=== PATIENT | male | born 1975 | race Caucasian/White ===

== ENCOUNTER 2020-08-24 17:32 | Inpatient (IN) | payer BC ==
[2020-08-24 18:28] LABS: Hemoglobin 13.2 g/dL (14.0-18.0); Mean Corpuscular HGB CONC 32.3 g/dL (32.0-36.0); Mean Corpuscular Hemoglobin 26.9 pg (27.0-31.0); Mean Corpuscular Volume 83.1 fL (78.0-98.0); Mean Platelet Volume 7.6 fL (7.4-10.4); Platelet Count 463 thou/uL (130-400); RBC Distribution Width 13.7 % (11.5-14.5); White Blood Cell (WBC) Count 9.6 thou/uL (4.8-10.8)
[2020-08-24 18:44] LABS: ALT (SGPT) 22 U/L (8-55); AST (SGOT) 39 U/L (5-34); Alkaline Phosphatase 59 U/L (40-110); Anion Gap 16 mmol/L (10-20); BUN (Urea Nitrogen) 31 mg/dL (8.9-20.6); Bilirubin, Total 0.6 mg/dL (0.2-1.2); Calc. Creatinine Clearance 0 mL/min (70-130); Calcium 7.7 mg/dL (7.8-10.44); Carbon Dioxide 26 mmol/L (22-29); Chloride 104 mmol/L (98-107); Estimated GFR-MDRD 35; Globulin 3.4 g/dL (2.4-3.5); Lipase 356 U/L (8-78); Potassium 3.7 mmol/L (3.5-5.1); Protein, Total 6.4 g/dL (6.0-8.3); Sodium 142 mmol/L (136-145)
[2020-08-24 18:52] LABS: Anisocytosis SLIGHT = 6-15 cells (100X) (0-5/hpf); Band 35 % (5-11); Eosinophils 1 % (0-10); MDiff Complete? YES; Monocytes 5 % (0-10); Neutrophil 56 % (42-75); Platelet Morphology Comment Appears Increased; Polychromasia SLIGHT = 2-3 cells (100X) (0-2/hpf); Reactive Lymphocytes 3 % (0-10)
[2020-08-24 18:53] LABS: Glucose 583 mg/dL (70-105)
[2020-08-24 19:07] LABS: Actual Bicarbonate (HCO3v) 25 mEq/L (22-28); Analyzer IN Cardio ER; Base Excess 1.1 mEq/L (-2.0 to +3.0); Calcium, Ionized (venous) 0.99 mmol/L (1.16-1.32); Chloride (VBG) 106 mmol/L (98-106); Potassium (VBG) 3.82 mmol/L (3.70-5.30); Sodium 141.6 mmol/L (133-146); pH (venous) 7.45 (7.32-7.43)
[2020-08-24 19:11] LABS: Bacteria/HPF None Seen HPF (None Seen); Bilirubin Negative (Negative); Blood, Urine 2+ (Negative); Clarity Clear (Clear); Glucose, Urine (Dipstick) Greater than 1000 mg/dL (Negative); Ketone, Urine Negative (Negative); Leukocyte Negative Leu/uL (Negative); Nitrite Negative (Negative); Protein, Urine (Dipstick) 10 mg/dL (Neg-Trace); RBC/HPF 0-3 HPF (0-3); Specific Gravity, Urine 1.036 (1.002-1.036); Squamous Epithelial 0-3 HPF (0-3); Urobilinogen Normal mg/dL (Less than 2); pH, Urine 5.5 (5.0-9.0)
[2020-08-24] MEDS ORDERED: HUMULIN R 100 UNITS in Sodium Chloride 0.9% 100 ML IVPB SCH ×2 (19:15→21:15)
[2020-08-24] MEDS ORDERED: Dextrose 5% in Water 1,000 ML IV PRN (19:15)
[2020-08-24] MEDS ORDERED: ADD ELECTROLYTE REPLACEMENT SET TO PROFILE FS SCH (19:15)
[2020-08-24] MEDS ORDERED: D5 1/2 NS w/20 mEq KCL 1,000 ML IV PRN (19:15)
[2020-08-24] MEDS ORDERED: Insulin Regular 300 UNITS/3 ML VIAL IVP SCH (19:15)
[2020-08-24] MEDS ORDERED: NS 0.9% w/ 20 MEQ KCL 1,000 ML/1,000 ML BAG IV PRN ×2 (19:15)
[2020-08-24] MEDS ORDERED: Dextrose 5 %-0.45 % NaCl 1,000 ML IV PRN ×2 (19:15→21:07)
[2020-08-24] MEDS ORDERED: Dextrose 50% Abboject 50 ML SYRINGE SLOW IVP PRN (19:15)
[2020-08-24] MEDS ORDERED: Electrolyte Replacement Protocol FS PRN (19:15)
[2020-08-24] MEDS ORDERED: Sodium Chloride 0.9% 1,000 ML IV PRN ×8 (19:15→21:07)
[2020-08-24] MEDS ORDERED: INSULIN REGULAR IN 0.9 % NACL 100 UNIT/100 ML BAG ONE (19:50)
[2020-08-24] MEDS ORDERED: NS 0.9% w/ 20 MEQ KCL 1,000 ML IV SCH (21:00)
[2020-08-24] MEDS ORDERED: HYDROcodone/Acetaminophen 5/325 mg Tablet PO PRN (21:07)
[2020-08-24] MEDS ORDERED: Acetaminophen 325 MG TAB PO PRN (21:07)
[2020-08-24] MEDS ORDERED: Guaifenesin DM 100-10/5 ML UDCUP PO PRN (21:07)
[2020-08-24] MEDS ORDERED: Electrolyte Replacement Protoc 1 EACH EACH IVPB PRN (21:07)
[2020-08-24] MEDS ORDERED: Acetaminophen 650 MG Suppository PR PRN (21:07)
[2020-08-24] MEDS ORDERED: NS 0.9% w/ 20 MEQ KCL 1,000 ML IV PRN ×2 (21:07)
--- NOTE | 2020-08-24 21:17 | PDOC.HHP ---
Hospitalist HPI - History of Present Illness cough sob History of Present Illness: Case of an 44y/o male with apparent no pmhx of chronic conditons who comes to hospital transfered fro [facility] due to covid 19 pneumonia. apparently patient was diagnosed on 08/12/20 with covid 19 and since then has been getting progressively worse. patient refers fever chills cough dyspnea and general malaise. at ED patient was evaluated and found to be on severe sepsis, in hyperosmolar hyperglycemic state and in acute respiratory failure requiring high flow oxygen, for which hospitalist was called for further evaluation and management. Hospitalist ROS - Review of Systems All other systems reviewed; all pertinent +/- noted in HPI/Subj Hospitalist History - Past Surgical History Past Surgical History: reports: no pertinent history - Social History Smoking Status: Never smoker Alcohol: reports: None Drugs: reports: none Living Situation: With Family Hospitalist Results - Labs Result Diagrams: 08/24/20 18:14 08/24/20 18:14 Lab results: WBC 9.6 thou/uL (4.8-10.8) 08/24/20 18:14 Hgb 13.2 g/dL (14.0-18.0) L 08/24/20 18:14 Hct 40.7 % (42.0-52.0) L 08/24/20 18:14 MCV 83.1 fL (78.0-98.0) 08/24/20 18:14 Plt Count 463 thou/uL (130-400) H 08/24/20 18:14 Band Neuts % (Manual) 35 % (5-11) H 08/24/20 18:14 VBG pH 7.45 (7.32-7.43) H 08/24/20 18:58 VBG pCO2 36.4 mmHg (42.0-51.0) L 08/24/20 18:58 VBG pO2 135.3 mmHg (35.0-45.0) H 08/24/20 18:58 Sodium 142 mmol/L (136-145) 08/24/20 18:14 Potassium 3.7 mmol/L (3.5-5.1) 08/24/20 18:14 Chloride 104 mmol/L (98-107) 08/24/20 18:14 Carbon Dioxide 26 mmol/L (22-29) 08/24/20 18:14 BUN 31 mg/dL (8.9-20.6) H 08/24/20 18:14 Creatinine 2.05 mg/dL (0.7-1.3) H 08/24/20 18:14 Glucose 583 mg/dL (70-105) H* 08/24/20 18:14 Lactic Acid 2.0 mmol/L (0.5-2.2) 08/24/20 18:14 Calcium 7.7 mg/dL (7.8-10.44) L 08/24/20 18:14 Total Bilirubin 0.6 mg/dL (0.2-1.2) 08/24/20 18:14 AST 39 U/L (5-34) H 08/24/20 18:14 ALT 22 U/L (8-55) 08/24/20 18:14 Alkaline Phosphatase 59 U/L (40-110) 08/24/20 18:14 Troponin I 0.019 ng/mL (< 0.028) 08/24/20 18:14 B-Natriuretic Peptide 14.1 pg/mL (0-100) 08/24/20 18:14 Serum Total Protein 6.4 g/dL (6.0-8.3) 08/24/20 18:14 Albumin 3.0 g/dL (3.5-5.0) L 08/24/20 18:14 Lipase 356 U/L (8-78) H 08/24/20 18:14 Urine Ketones Negative mg/dL (Negative) 08/24/20 18:40 Urine Blood 2+ (Negative) A 08/24/20 18:40 Urine Nitrite Negative (Negative) 08/24/20 18:40 Ur Leukocyte Esterase Negative Mauri/uL (Negative) 08/24/20 18:40 Urine RBC 0-3 HPF (0-3) 08/24/20 18:40 Urine WBC 4-6 HPF (0-3) A 08/24/20 18:40 Ur Squamous Epith Cells 0-3 HPF (0-3) 08/24/20 18:40 Urine Bacteria None Seen HPF (None Seen) 08/24/20 18:40 Hospitalist H&P A/P - Problem (1) Acute respiratory failure due to COVID-19 Code(s): U07.1 - COVID-19; J96.00 - ACUTE RESPIRATORY FAILURE, UNSP W HYPOXIA OR HYPERCAPNIA Status: Acute (2) Pneumonia due to COVID-19 virus Code(s): U07.1 - COVID-19; J12.89 - OTHER VIRAL PNEUMONIA Status: Acute (3) Hyperosmolar hyperglycemic state (HHS) Code(s): E11.00 - TYPE 2 DIAB W HYPROSM W/O NONKET HYPRGLY-HYPROS COMA ([facility]); E11.65 - TYPE 2 DIABETES MELLITUS WITH HYPERGLYCEMIA Status: Acute (4) Sepsis Code(s): A41.9 - SEPSIS, UNSPECIFIED ORGANISM Status: Acute (5) Renal failure Status: Acute (6) Elevated d-dimer Code(s): R79.89 - OTHER SPECIFIED ABNORMAL FINDINGS OF BLOOD CHEMISTRY Status: Acute - Plan Plan: Case of an 44y/o male with no apparent pmhx who presents with severe sepsis likely secondary to covid 19 pneumonia, hypersomolar hyperglycemic state and renal failure severe sepsis likely secondary to covid 19 pneumonia - tachycardic + tachypnic + respiratory failure + renal failure + elevated LA at 3.8 with a cxr suspicious for covid 19 pneumonia - sepsis bundles started w ivfs cultures and broad spectrum abx - started prophylactically on rocephin + azithromycin - f/u LA initial 3.8 - f/u cultures - decadron 6mg ivd - f/u inflammation markers - id consulted acute respiratory failure - requiring high flow 02 supplementation - likely secondary to above - corporate meeting planner consulted hyperosmolar hyperglycemic state - blood sugar over 600s, calculated osmolality 339, normal anion gap, normal ph, positive ketones in urine - insulin drip protocol started - iv hydration renal failure - iv hydration - monitor creatinine and u/o - likely multifactorial in the setting of severe sepsis and HHS - nephrology cosulted - renal us elevated dimer - patient with elevated dimer - unable to get cta due to renal failure - will cover with full dose of lovenox
--- NOTE | 2020-08-24 21:58 | RAD ---
Portable frontal chest radiograph: 08/24/2020 COMPARISON: 08/24/2020 HISTORY: Sepsis FINDINGS: There has been no significant interval change in diffuse interstitial and alveolar/ground g lass opacity bilaterally. No pneumothorax or large volume pleural effusion. Heart and mediastinal contours are unremarkable. IMPRESSION: Stable extensive interstitial and alveolar opacity suspicious for Covid pneumonia.
[2020-08-24 22:00] LABS: Anion Gap 18 mmol/L (10-20); BUN (Urea Nitrogen) 30 mg/dL (8.9-20.6); Calc. Creatinine Clearance 95 mL/min (70-130); Calcium 7.7 mg/dL (7.8-10.44); Carbon Dioxide 23 mmol/L (22-29); Chloride 108 mmol/L (98-107); Estimated GFR-MDRD 39; Glucose 491 mg/dL (70-105); Potassium 3.7 mmol/L (3.5-5.1); Sodium 145 mmol/L (136-145)
[2020-08-24] MEDS ORDERED: Azithromycin 500 MG in Sodium Chloride 0.9% 250 ML 250 ML IVPB SCH (22:00)
[2020-08-24] MEDS: cefTRIAXone\\ROCEPHIN 2 GM in Sodium Chloride 0.9% 100 ML IVPB SCH (23:12)
[2020-08-25] MEDS: Azithromycin 500 MG in Sodium Chloride 0.9% 250 ML 250 ML IVPB SCH ×2 (00:20→23:14)
[2020-08-25 01:28] VITALS: BMI 40.6
[2020-08-25 02:49] LABS: Band 20 % (5-11); Hemoglobin 12.6 g/dL (14.0-18.0); Lymphocytes 5 % (21-51); MDiff Complete? YES; Mean Corpuscular HGB CONC 33.7 g/dL (32.0-36.0); Mean Corpuscular Volume 83.2 fL (78.0-98.0); Mean Platelet Volume 7.5 fL (7.4-10.4); Monocytes 3 % (0-10); Neutrophil 71 % (42-75); Nucleated RBC 1 % (0); Platelet Count 447 thou/uL (130-400); RBC Distribution Width 13.6 % (11.5-14.5); Red Blood Cell (RBC) Count 4.51 mill/uL (4.70-6.10)
[2020-08-25] MEDS: D5 1/2 NS w/20 mEq KCL 1,000 ML IV PRN ×3 (02:57→22:23)
[2020-08-25 03:08] LABS: ALT (SGPT) 20 U/L (8-55); AST (SGOT) 39 U/L (5-34); Albumin 2.9 g/dL (3.5-5.0); Alkaline Phosphatase 53 U/L (40-110); Anion Gap 13 mmol/L (10-20); BUN (Urea Nitrogen) 25 mg/dL (8.9-20.6); Bilirubin, Total 0.5 mg/dL (0.2-1.2); CRP (Inflammatory) 15.63 mg/dL (= or < 0.5); Calc. Creatinine Clearance 114 mL/min (70-130); Calcium 7.5 mg/dL (7.8-10.44); Carbon Dioxide 26 mmol/L (22-29); Chloride 113 mmol/L (98-107); Estimated GFR-MDRD 48; Globulin 3.4 g/dL (2.4-3.5); Glucose 241 mg/dL (70-105); Potassium 3.8 mmol/L (3.5-5.1); Protein, Total 6.3 g/dL (6.0-8.3); Sodium 148 mmol/L (136-145)
[2020-08-25 05:28] LABS: Anion Gap 16 mmol/L (10-20); BUN (Urea Nitrogen) 24 mg/dL (8.9-20.6); Calc. Creatinine Clearance 121 mL/min (70-130); Calcium 7.4 mg/dL (7.8-10.44); Carbon Dioxide 23 mmol/L (22-29); Chloride 114 mmol/L (98-107); Estimated GFR-MDRD 51; Glucose 182 mg/dL (70-105); Potassium 3.9 mmol/L (3.5-5.1); Sodium 149 mmol/L (136-145)
--- NOTE | 2020-08-25 07:55 | ULT ---
US Renal Bilateral STANDARD: 08/25/2020 7:00 AM CLINICAL HISTORY: Renal failure. STUDY: Renal ultrasound COMPARISON: None. FINDINGS: Right kidney: Echogenicity: Slight increased echogenicity Masses/cysts: None. Hydronephrosis: None. Calcifications: None. Length: 13.5 cm Left kidney: Echogenicity: Slight increased echogenicity Masses/cysts: None. Hydronephrosis: None. Calcifications: None. Length: 11.5 cm Limited visualization of the urinary bladder is unremarkable. IMPRESSION: Slight increased echogenicity of the kidneys can be seen with chronic medical renal disease.
--- NOTE | 2020-08-25 08:39 | PDOC.HOSPP ---
- Subjective Encounter Date: 08/25/20 Encounter Time: 08:36 Subjective: denies DM, wont keep O2 on. sats drop to 80 - Objective Vital Signs & Weight: Vital Signs (12 hours) Temp Pulse Ox 08/25/20 07:20 95 08/24/20 21:08 97.3 F L 08/24/20 21:00 96 Weight Weight 300 lb 1 oz Most Recent Monitor Data Heart Rate from ECG 90 NIBP 145/96 NIBP BP-Mean 112 Respiration from ECG 27 SpO2 93 I&O: 08/24/20 08/25/20 08/26/20 06:59 06:59 06:59 Intake Total 2810 260 Output Total 450 Balance 2360 260 Result Diagrams: 08/25/20 02:15 08/25/20 04:38 Additional Labs: Accuchecks 08/25/20 08/25/20 08/25/20 08:21 07:08 06:46 POC Glucose 136 H 197 H 146 H 08/25/20 08/25/20 08/25/20 06:11 05:51 04:56 POC Glucose 167 H 151 H 175 H 08/25/20 08/25/20 08/25/20 04:11 03:00 02:14 POC Glucose 184 H 196 H 228 H 08/25/20 08/24/20 08/24/20 00:26 23:17 21:12 POC Glucose 299 H 355 H 440 H 08/24/20 19:57 POC Glucose 459 H Hospitalist ROS - Medication Medications: Active Medications Generic Name Dose Route Start Last Admin Trade Name Freq PRN Reason Stop Dose Admin Potassium Chloride/Dextrose/Sod Cl 1,000 mls @ 250 mls/hr 08/24/20 21:07 08/25/20 06:27 D5 1/2 Ns W/20 Meq Kcl IV 1,000 mls .Q4H PRN Administration Step 4 of DKA Protocol Protocol Potassium Chloride/Sodium Chloride 1,000 mls @ 250 mls/hr 08/24/20 21:07 08/24/20 23:18 Ns 0.9% W/ 20 Meq Kcl IV 1,000 mls .Q4H PRN Administration SEE STEP 3 OF DKA PROTOCOL Protocol Insulin Human Regular 100 101 mls @ 0 mls/hr 08/24/20 21:15 08/25/20 05:47 units/ Sodium Chloride IVPB 101 mls INF LAVERN Administration Protocol Titrate Ceftriaxone Sodium 2 gm/ 100 mls @ 200 mls/hr 08/24/20 21:15 08/24/20 23:12 Sodium Chloride IVPB 100 mls Q24HR LAVERN Administration Azithromycin 500 mg/ Sodium 250 mls @ 250 mls/hr 08/24/20 23:59 08/25/20 00:20 Chloride IVPB 250 mls 2359 LAVERN Administration Influenza Virus Vaccine Quadrival 60 mcg 08/25/20 09:00 08/25/20 07:52 Flu Vacc [id number](6mos Up)/Pf 60 Mcg/0.5 Ml Syringe IM 08/25/20 09:01 Not Given .ONCE ONE Pneumococcal Polyvalent Vaccine 0.5 ml 08/25/20 09:00 08/25/20 07:52 Pneumococcal 23 "Pneumovax" 0.5 Ml Vial IM 08/25/20 09:01 Not Given .ONCE ONE - Exam General Appearance: awake alert Neck: no JVD Heart: RRR, no murmur Respiratory - other findings: bilat rales Gastrointestinal: soft, non-distended, normal bowel sounds Extremities: no edema Hosp A/P (1) Acute renal failure Status: Acute (2) DM2 (diabetes mellitus, type 2) Status: Acute Qualifiers: Diabetes mellitus custodial insulin use: without acid supervisor use Diabetes mellitus complication status: with kidney complications Diabetes mellitus complication detail: with other kidney complication Qualified Code(s): E11.29 - Type 2 diabetes mellitus with other diabetic kidney complication (3) Acute respiratory failure due to COVID-19 Code(s): U07.1 - COVID-19; J96.00 - ACUTE RESPIRATORY FAILURE, UNSP W HYPOXIA OR HYPERCAPNIA Status: Acute (4) Pneumonia due to COVID-19 virus Code(s): U07.1 - COVID-19; J12.89 - OTHER VIRAL PNEUMONIA Status: Acute - Plan contt high flow O2 cont steroids covid apparently Dx 08/12/20 cont iv fluids, iv insulin serial BMP,etc HgA1c
[2020-08-25] MEDS ORDERED: FLU VACC QS2020-21(6MOS UP)/PF 60 MCG/0.5 ML SYRINGE IM ONE (09:00)
[2020-08-25] MEDS: Dexamethasone 6 MG in Sodium Chloride 0.9% 50 ML IVPB SCH (09:12)
[2020-08-25] MEDS: Famotidine/PF 20 mg/2ml Vial SLOW IVP SCH ×2 (09:12→20:52)
[2020-08-25] MEDS: Enoxaparin Sodium 80 MG/0.8 ML SYRINGE SC SCH ×2 (09:13→20:50)
[2020-08-25 10:11] LABS: Hemoglobin A1c 11.2 % (4.0-6.0)
--- NOTE | 2020-08-25 10:42 | CON ---
DATE OF CONSULTATION: 08/25/2020 CONSULTING PHYSICIAN: Hospitalist. REASON FOR CONSULTATION: COVID-19 infection. HISTORY OF PRESENT ILLNESS: The patient is a 44-year-old male, who comes in saying he has been sick since 08/12 when he was first diagnosed with COVID-19 that would put him about day 13 at this time. He came in with hyperglycemia. It is not clear to me if he was taking steroids prior to admission. The patient says the only thing he remembers taking was Mucinex. PAST MEDICAL HISTORY: Essentially unremarkable. PAST SURGICAL HISTORY: Unremarkable. SOCIAL HISTORY: Does not smoke. Occasionally drinks alcohol. 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 REVIEW OF SYSTEMS: He still has a sense of taste and smell. No body aches. PHYSICAL EXAMINATION: VITAL SIGNS: Temperature 97.3, pulse 90, blood pressure 144/105. HEENT: Unremarkable. NECK: No JVD. LUNGS: Fairly clear. CARDIAC: S1 and S2, regular. ABDOMEN: Soft. EXTREMITIES: No edema. LABORATORY DATA: ABG; pH 7.45, pCO2 of 36, pO2 of 135. Sodium 149, potassium 3.9, chloride 114, CO2 of 23, BUN 24, creatinine 1.5, glucose 182, on insulin drip. C-reactive protein 15.6. D-dimer 0.9. White blood cell count 8, hematocrit 37.5, and platelet count 447. Urinalysis showed no ketones, he had a glucose of greater than 1000. Chest x-ray shows bilateral pulmonary infiltrates. ASSESSMENT: 1. COVID-19 infection consistent with pneumonia. 2. Diabetes with blood sugars out of control - question diabetic ketoacidosis based on elevated beta hydroxybutyrate, but no anion gap or acidosis seen on chemistry. RECOMMENDATIONS: He is continuing anticoagulation. He was put on empiric antibiotics by the Hospitalist Group. I would advocate changing him over to less hypertonic IV fluids. I would wean him off the insulin drip as tolerated. I am not sure steroids are going to be much help since he is day 14 into the illness and possibly even further. I have started him on vitamin C, vitamin D, and zinc. He will continue high-flow oxygen as needed. Job ID: [id number]
--- NOTE | 2020-08-25 17:19 | CON ---
DATE OF CONSULTATION: 08/25/2020 REASON FOR CONSULT: COVID pneumonia. HISTORY OF PRESENT ILLNESS: A 44-year-old with history of no previous medical issues, who was diagnosed with SARS-CoV-2 infection on August 12, initially mild symptoms, then they became progressively worse with dyspnea, cough, and general malaise. On arrival to the emergency room, he was hyperglycemic and with severe hypoxemia, was placed on a nonrebreathing Ventimask and eventually transition to high-flow nasal cannula. Currently, he is awake and alert with nasal cannula only 4 L. Denies headaches. No visual symptoms. Intermittent cough. No chest pain. Mild dyspnea. No back pain. No abdominal pain or diarrhea. No genitourinary symptoms. No joint symptoms. PAST MEDICAL HISTORY: It is all previously negative. Obviously, he had undiagnosed diabetes mellitus type 2. PAST SURGICAL HISTORY: Negative. SOCIAL HISTORY: Never smoker. He lives in [place]. He used to work there in [employer]. No alcoholic beverage use. No drug use. FAMILY HISTORY: Noncontributory. ALLERGIES: NONE. CURRENT MEDICATIONS: 1. Azithromycin. 2. Ceftriaxone. 3. Decadron. 4. Enoxaparin. 5. Guaifenesin. 6. Hydrocodone. 7. Zinc. PHYSICAL EXAMINATION: VITAL SIGNS: He has been afebrile. BP 113/86, heart rate 87, breathing 23 times a minute, and saturating 91 to 92 with 4 L nasal cannula O2 supplementation. SKIN: Exam was normal. Peripheral IV access. Voiding spontaneously in the urinal. No lymphadenopathy. HEENT: Ocular movements conjugate. Oral cavity normal. NECK: Supple. LUNGS: With quite pronounced inspiratory crackles up to a half of right and left hemithorax. No wheezing. HEART: S1 and S2. Regular rate. ABDOMEN: Soft, not distended or tender. No ascites. No bladder distention. EXTREMITIES: No joint inflammatory activity. Moves extremities equally. Cognitive function appears to be intact. LABORATORY DATA: White cell count is 8.0, hemoglobin 12.6, platelets 447, 20% bands, and D-dimer 0.9. Sodium 149, creatinine 1.48, AST 39, ALT 20, and calcium 7.5. CRP 15.63. Albumin 2.9. Urinalysis was 4 to 6 wbc's. Two sets of blood cultures, no growth and chest x-ray with diffuse bilateral infiltrates typical of COVID infection. Renal ultrasound with slight increased echogenicity. ASSESSMENT: 1. Undiagnosed type 2 diabetes. 2. COVID pneumonia, severe. DISCUSSION: The patient is at the end of his second week of illness, so he is not going to benefit from remdesivir and he is at high risk for deterioration, but we will hope that Decadron will turn around things for him. Continue monitoring markers and right now, he is on nasal cannula, kind of marginal success with nasal cannula. We will see how he does going forward. Job ID: [id number]
[2020-08-25] MEDS: cefTRIAXone\\ROCEPHIN 2 GM in Sodium Chloride 0.9% 100 ML IVPB SCH (20:52)
--- NOTE | 2020-08-25 22:14 | CON ---
DATE OF CONSULTATION: REQUESTING PHYSICIAN: Liam Ghotra MD REASON FOR CONSULTATION: Acute on chronic kidney disease. IMPRESSION: 1. Acute on chronic kidney disease. This is likely all cytokine-mediated in the context of infection as well as possible COVID nephropathy. 2. Chronic kidney disease. PLAN: 1. Renal supportive measures with gentle IV fluid resuscitation. 2. Avoid potentially nephrotoxic agents. 3. Renally dose all medications. 4. Further management will be dependent on the clinical course. HISTORY OF PRESENT ILLNESS: History is that of a 44-year-old gentleman, who presented here with cough and shortness of breath, having been transferred from [facility] due to possible COVID-19 pneumonitis. The patient after being diagnosed with COVID on the , has progressively been getting worse with fever, chills, cough, and respiratory distress. The patient on presentation, was noted with a creatinine above 2, it was the need for Renal consultation. PAST MEDICAL HISTORY: Nonsignificant at this point. SOCIAL HISTORY: No alcohol. No tobacco. No illicit drug use. LABORATORY INVESTIGATIONS: Significant for creatinine of 2.05 and BUN of 31. REVIEW OF SYSTEMS: Could not be obtained due to clinical condition of this. PHYSICAL EXAMINATION: VITAL SIGNS: The patient noted with the following vital signs, heart rate of 86 to 102, O2 saturation of 80% to 92%, and respiratory rate of 21. HEENT: Unremarkable. CARDIOVASCULAR SYSTEM: First and second heart sounds were heard. RESPIRATORY SYSTEM: Lateral rales. DIGESTIVE SYSTEM: Benign abdomen. EXTREMITIES: No peripheral edema. SKIN: No new gross rash. LYMPHATICS: No peripheral lymphadenopathy. SUMMARY: A 44-year-old, recently diagnosed COVID pneumonitis with renal involvement. Thank you for this consultation. We will follow with you. Job ID: [id number]
[2020-08-26] MEDS: D5 1/2 NS w/20 mEq KCL 1,000 ML IV PRN (02:37)
[2020-08-26 04:40] LABS: Anion Gap 14 mmol/L (10-20); BUN (Urea Nitrogen) 15 mg/dL (8.9-20.6); Calc. Creatinine Clearance 139 mL/min (70-130); Calcium 7.2 mg/dL (7.8-10.44); Carbon Dioxide 26 mmol/L (22-29); Chloride 112 mmol/L (98-107); Estimated GFR-MDRD 60; Glucose 189 mg/dL (70-105); Potassium 3.8 mmol/L (3.5-5.1); Sodium 148 mmol/L (136-145)
[2020-08-26] MEDS: Ascorbic Acid 500 mg Chewable Tablet PO SCH (08:08)
[2020-08-26] MEDS: Zinc Sulfate 220 MG CAP PO SCH (08:08)
[2020-08-26] MEDS: Famotidine/PF 20 mg/2ml Vial SLOW IVP SCH ×2 (08:08→20:15)
[2020-08-26] MEDS ORDERED: Dextrose 5% in Water 1,000 ML IV PRN (08:09)
[2020-08-26] MEDS: Cholecalciferol (Vitamin D3) 400 UNITS TAB PO SCH (08:09)
[2020-08-26] MEDS ORDERED: Dextrose 50% Abboject 50 ML SYRINGE SLOW IVP PRN (08:09)
[2020-08-26] MEDS: Enoxaparin Sodium 80 MG/0.8 ML SYRINGE SC SCH ×2 (08:11→20:17)
--- NOTE | 2020-08-26 08:12 | PDOC.HOSPP ---
- Subjective Encounter Date: 08/26/20 Encounter Time: 08:10 Subjective: pulls O2 off, desats to 70. nursing staff coping with his lack of cooperation - Objective Vital Signs & Weight: Vital Signs (12 hours) Temp 08/26/20 04:00 98.8 F 08/26/20 00:05 98.2 F 08/25/20 21:56 98.0 F Weight Weight 300 lb 1 oz Most Recent Monitor Data Heart Rate from ECG 100 NIBP 99/62 NIBP BP-Mean 74 Respiration from ECG 23 SpO2 96 I&O: 08/25/20 08/26/20 08/27/20 06:59 06:59 06:59 Intake Total 2810 6707 250 Output Total 450 2050 Balance 2360 4657 250 Result Diagrams: 08/25/20 02:15 08/26/20 03:56 Additional Labs: Accuchecks 08/26/20 08/26/20 08/26/20 07:22 05:52 05:04 POC Glucose 120 H 142 H 152 H 08/26/20 08/26/20 08/26/20 03:59 02:41 01:47 POC Glucose 171 H 208 H 191 H 08/26/20 08/25/20 08/25/20 00:54 23:58 23:08 POC Glucose 205 H 186 H 168 H 08/25/20 08/25/20 08/25/20 21:45 21:02 20:14 POC Glucose 125 H 138 H 126 H 08/25/20 08/25/20 08/25/20 19:22 17:10 16:03 POC Glucose 136 H 129 H 133 H 08/25/20 08/25/20 08/25/20 14:56 13:27 11:19 POC Glucose 162 H 116 H 120 H 08/25/20 08/25/20 08/25/20 10:16 09:22 08:21 POC Glucose 116 H 125 H 136 H 08/24/20 08/24/20 22:16 18:00 POC Glucose 390 H Greater than 500 H Hospitalist ROS - Medication Medications: Active Medications Generic Name Dose Route Start Last Admin Trade Name Freq PRN Reason Stop Dose Admin Enoxaparin Sodium 140 mg 08/25/20 09:00 08/25/20 20:50 Enoxaparin Sodium 80 Mg/0.8 Ml Syringe SC 140 mg 0900,2100 [facility] Administration Famotidine 20 mg 08/25/20 09:00 08/25/20 20:52 Famotidine/Pf 20 Mg/2ml Vial SLOW IVP 20 mg Q12HR LAVERN Administration Ceftriaxone Sodium 2 gm/ 100 mls @ 200 mls/hr 08/24/20 21:15 08/25/20 20:52 Sodium Chloride IVPB 100 mls Q24HR LAVERN Administration Dexamethasone 6 mg/ Sodium 50.6 mls @ 100 mls/hr 08/25/20 09:00 08/25/20 09:12 Chloride IVPB 50.6 mls DAILY LAVERN Administration Azithromycin 500 mg/ Sodium 250 mls @ 250 mls/hr 08/24/20 23:59 08/25/20 23:14 Chloride IVPB 250 mls 2359 LAVERN Administration - Exam General Appearance: awake alert Neck: no JVD Heart: RRR, no murmur Respiratory - other findings: fine rales most pronounced posteriorly. mildly coarse BS Gastrointestinal: soft, normal bowel sounds, no palpable masses Extremities: no edema Hosp A/P (1) Acute renal failure Status: Acute Qualifiers: Acute renal failure type: unspecified Qualified Code(s): N17.9 - Acute kidney failure, unspecified (2) DM2 (diabetes mellitus, type 2) Status: Acute Qualifiers: Diabetes mellitus petroleum terminal plant operator insulin use: without mcfp use Diabetes mellitus complication status: with kidney complications Diabetes mellitus complication detail: with other kidney complication Qualified Code(s): E11.29 - Type 2 diabetes mellitus with other diabetic kidney complication (3) Acute respiratory failure due to COVID-19 Code(s): U07.1 - COVID-19; J96.00 - ACUTE RESPIRATORY FAILURE, UNSP W HYPOXIA OR HYPERCAPNIA Status: Acute (4) Pneumonia due to COVID-19 virus Code(s): U07.1 - COVID-19; J12.89 - OTHER VIRAL PNEUMONIA Status: Acute - Plan appreciate Dr Ba input cont high flow O2 cont steroids covid apparently Dx 08/12/20 DC iv insulin 2400 kerri consistent carbs diet accu AC&HS, moderate SS start lantus 10 units HS renaal fcn improving
[2020-08-26] MEDS: Dexamethasone 6 MG in Sodium Chloride 0.9% 50 ML IVPB SCH (09:09)
--- NOTE | 2020-08-26 09:52 | PRG ---
DATE OF SERVICE: 08/26/2020 SUBJECTIVE: He remains somewhat confused. He is on high-flow oxygen. OBJECTIVE: VITAL SIGNS: Temperature 98.8, pulse 111, blood pressure 114/94, O2 saturation 92%. HEENT: Unremarkable. NECK: No JVD. LUNGS: Crackles bilaterally. CARDIAC: S1, S2. Regular. ABDOMEN: Soft. EXTREMITIES: No edema. LABORATORY DATA: Blood sugars are down to about 142. C-reactive protein was 7.29 as compared to 15.6 when he was admitted. ASSESSMENT: 1. COVID-19 pneumonia. 2. Acute hypoxic respiratory failure. 3. Diabetes mellitus. PLAN: He is continuing steroids, vitamin C, vitamin D, zinc. He is also on anticoagulation, secondary antibiotics. Job ID: [id number]
[2020-08-26] MEDS: HumaLOG 300 UNITS/3 ML VIAL SC PRN (11:49)
--- NOTE | 2020-08-26 17:26 | PRG ---
DATE OF SERVICE: 08/26/2020 SUBJECTIVE: Mr. Pittman is not tolerating his high-flow nasal cannula. We had to switch him to a nonrebreathing mask and he still keeps the nonrebreathing mask below his nose. Sometimes, he feels anxious. He denies any pain. He is able to drink and eat. No abdominal pain. No genitourinary symptoms. OBJECTIVE: VITAL SIGNS: Afebrile, saturation 92% with not nonrebreathing Ventimask and 91% on room air, BP 120/86, heart rate 97, respiratory rate 22. GENERAL: He appears somewhat agitated and anxious, but ocular movements are conjugate. LUNGS: Symmetric air entry. HEART: S1 and S2, regular rate. Not a lot of inspiratory crackles or wheezing heard. ABDOMEN: Soft, not distended or tender. No ascites. No bladder distention. EXTREMITIES: Moves extremities equally. LABORATORY DATA: White cell count 8.0, hemoglobin 12.6, platelets 447. Chemistry with a creatinine of 1.29, which is actually better than admission. Ferritin is down to 1900. CRP is down to 7.29. MEDICATIONS: Currently on, 1. Decadron. 2. Ceftriaxone. 3. Azithromycin. ASSESSMENT AND DISCUSSION: Undiagnosed type 2 diabetes; COVID pneumonia, moderate to severe. This is the end of second week of illness. He is on Decadron. Those patients with COVID-19 have bandemia without actual concomitant bacterial superinfection. Job ID: [id number]
--- NOTE | 2020-08-26 18:34 | PRG ---
DATE OF SERVICE: 08/26/2020 SUBJECTIVE: The patient noted with the following vital signs. OBJECTIVE: VITAL SIGNS: Blood pressure 124/86, pulse of 97, respiratory rate of 27, and O2 saturation of 92% to 94%. HEENT: Unremarkable. CARDIOVASCULAR SYSTEM: First and second heart sounds were heard. RESPIRATORY SYSTEM: Showed a lot of transmitted sounds. DIGESTIVE SYSTEM: Revealed an obese abdomen. EXTREMITIES: No peripheral edema. SKIN: No new gross rash. LYMPHATICS: No peripheral lymphadenopathy. LABORATORY INVESTIGATIONS: Significant for sodium of 148 and creatinine 1.29. IMPRESSION: 1. Hypernatremia in the context of free water deficit. 2. Acute kidney injury much improved status post rehydration. 3. COVID pneumonitis. PLAN: 1. Discontinue current saline infusion. We will rather start the patient on free water. The patient encouraged to drink . 2. Monitor the electrolytes, especially the sodium and make adjustments accordingly. Job ID: [id number]
[2020-08-26] MEDS: cefTRIAXone\\ROCEPHIN 2 GM in Sodium Chloride 0.9% 100 ML IVPB SCH (20:15)
[2020-08-26] MEDS: Insulin Glargine 10 UNITS in Pre-Filled Syringe 1 EACH SC SCH (20:17)
[2020-08-26] MEDS: Azithromycin 500 MG in Sodium Chloride 0.9% 250 ML 250 ML IVPB SCH (23:59)
[2020-08-27 04:11] LABS: Anion Gap 14 mmol/L (10-20); BUN (Urea Nitrogen) 15 mg/dL (8.9-20.6); Calc. Creatinine Clearance 166 mL/min (70-130); Calcium 7.4 mg/dL (7.8-10.44); Carbon Dioxide 23 mmol/L (22-29); Chloride 111 mmol/L (98-107); Estimated GFR-MDRD 74; Glucose 181 mg/dL (70-105); Potassium 3.7 mmol/L (3.5-5.1); Sodium 144 mmol/L (136-145)
[2020-08-27] MEDS: Dexamethasone 6 MG in Sodium Chloride 0.9% 50 ML IVPB SCH ×2 (10:31→21:07)
[2020-08-27] MEDS: Cholecalciferol (Vitamin D3) 400 UNITS TAB PO SCH (10:32)
[2020-08-27] MEDS: Enoxaparin Sodium 80 MG/0.8 ML SYRINGE SC SCH ×2 (10:32→21:10)
[2020-08-27] MEDS: Famotidine/PF 20 mg/2ml Vial SLOW IVP SCH ×2 (10:32→21:08)
[2020-08-27] MEDS: Zinc Sulfate 220 MG CAP PO SCH (10:32)
--- NOTE | 2020-08-27 10:45 | PRG ---
DATE OF SERVICE: 08/27/2020 SUBJECTIVE: Mikhail Pittman is a morbidly obese gentleman, remains in the ICU, on high-flow. OBJECTIVE: VITAL SIGNS: Saturations are 93%, flow rate is 40, 70%. Blood pressure 120/76, respiratory rate 18. CHEST: No wheezing. No crackles. CARDIAC: Normal S1, S2. No gallops. ABDOMEN: No masses. ASSESSMENT: Morbid obesity, respiratory failure, carballo positive pneumonia. PLAN: I would increase the dose of steroids, otherwise continue supportive care. We will follow. Job ID: [id number]
[2020-08-27] MEDS: Ascorbic Acid 500 mg Chewable Tablet PO SCH (10:55)
--- NOTE | 2020-08-27 13:57 | PDOC.HOSPP ---
- Subjective Encounter Date: 08/27/20 Encounter Time: 13:45 Subjective: f/u for COVID PNA on Zithromax/Rocephin/Lovenox/Vit C/Zinc/Dexamethasone. Remains on high-flow NC 40L/min. - Objective Vital Signs & Weight: Vital Signs (12 hours) Temp Pulse Ox 08/27/20 08:09 97.8 F 08/27/20 07:25 93 L 08/27/20 01:59 94 L Weight Weight 300 lb 1 oz Most Recent Monitor Data Heart Rate from ECG 79 NIBP 113/75 NIBP BP-Mean 87 Respiration from ECG 22 SpO2 100 I&O: 08/26/20 08/27/20 08/28/20 06:59 06:59 06:59 Intake Total 6707 2600 500 Output Total 2050 1500 450 Balance 4657 1100 50 Result Diagrams: 08/25/20 02:15 08/27/20 03:30 Additional Labs: Accuchecks 08/27/20 08/27/20 08/26/20 06:55 04:58 20:27 POC Glucose 150 H 167 H 191 H 08/26/20 15:45 POC Glucose 233 H Laboratory Tests 08/24/20 08/24/20 08/24/20 18:14 18:14 18:14 Hgb 13.2 L Plt Count 463 H Band Neuts % (Manual) 35 H D-Dimer 0.90 H Hemoglobin A1c Ferritin B-Hydroxybutyrate 0.81 H 08/25/20 08/25/20 08/25/20 02:15 02:15 02:15 Hgb Plt Count Band Neuts % (Manual) 20 H D-Dimer Hemoglobin A1c 11.2 H Ferritin 2235.30 H B-Hydroxybutyrate 08/26/20 08/26/20 03:56 03:56 Hgb Plt Count Band Neuts % (Manual) D-Dimer 1.84 H Hemoglobin A1c Ferritin 1929.74 H B-Hydroxybutyrate Radiology Reviewed by me: Yes (PCXR - bilat extensive infiltrates) EKG Reviewed by me: Yes (Tele - SR) Hospitalist ROS - Medication Medications: Active Medications Generic Name Dose Route Start Last Admin Trade Name Freq PRN Reason Stop Dose Admin Ascorbic Acid 1,000 mg 08/26/20 09:00 08/27/20 10:55 Ascorbic Acid 500 Mg Chewable Tablet PO 1,000 mg DAILY LAVERN Administration Cholecalciferol 1,200 units 08/26/20 09:00 08/27/20 10:32 Cholecalciferol (Vitamin D3) 400 Units Tab PO 1,200 units DAILY LAVERN Administration Enoxaparin Sodium 140 mg 08/25/20 09:00 08/27/20 10:32 Enoxaparin Sodium 80 Mg/0.8 Ml Syringe SC 140 mg 0900,2100 LAVERN Administration Famotidine 20 mg 08/25/20 09:00 08/27/20 10:32 Famotidine/Pf 20 Mg/2ml Vial SLOW IVP 20 mg Q12HR LAVERN Administration Ceftriaxone Sodium 2 gm/ 100 mls @ 200 mls/hr 08/24/20 21:15 08/26/20 20:15 Sodium Chloride IVPB 100 mls Q24HR LAVERN Administration Azithromycin 500 mg/ Sodium 250 mls @ 250 mls/hr 08/24/20 23:59 08/26/20 23:59 Chloride IVPB 250 mls 2359 LAVERN Administration Insulin Glargine 10 units/ 0.1 mls @ 0 mls/hr 08/26/20 21:00 08/26/20 20:17 Miscellaneous Medication SC 0.1 mls HS LAVERN Administration Insulin Human Lispro 0 units 08/26/20 08:09 08/26/20 11:49 Humalog 300 Units/3 Ml Vial SC 4 unit .MODERATE SLIDING SC PRN Administration Moderate Correctional Scale Zinc Sulfate 220 mg 08/26/20 09:00 08/27/20 10:32 Zinc Sulfate 220 Mg Cap PO 220 mg DAILY LAVERN Administration - Exam General Appearance: NAD, awake alert Eye: PERRL, anicteric sclera ENT: normocephalic atraumatic, no oropharyngeal lesions Neck: supple, symmetric, no JVD, no thyromegaly, no lymphadenopathy Heart: RRR, no gallops, no rubs, normal peripheral pulses Heart - other findings: S1, S2 Respiratory: tachypneic Respiratory - other findings: diminished bilat, few coarse sounds Gastrointestinal: soft, non-tender, non-distended, normal bowel sounds, no palpable masses Gastrointestinal - other findings: obese Extremities: no cyanosis, no clubbing, no edema Skin: normal turgor, no lesions Neurological: cranial nerve grossly intact, no new deficit Musculoskeletal: normal tone, normal strength, no muscle wasting Psychiatric: normal affect, A&O x 3 Hosp A/P (1) Pneumonia due to COVID-19 virus Code(s): U07.1 - COVID-19; J12.89 - OTHER VIRAL PNEUMONIA Status: Acute Plan: Continue Zithromax/Rocephin/Lovenox/Dexamethasone/Vit C/Zinc/High-flow NC with 40L/min (2) Acute respiratory failure due to COVID-19 Code(s): U07.1 - COVID-19; J96.00 - ACUTE RESPIRATORY FAILURE, UNSP W HYPOXIA OR HYPERCAPNIA Status: Acute Plan: High-flow NC @ 40L/min (3) Acute renal failure Status: Acute Qualifiers: Acute renal failure type: unspecified Qualified Code(s): N17.9 - Acute kidney failure, unspecified Plan: Avoid nephrotoxic meds and limit contrast, improved (4) Diabetes mellitus type II, uncontrolled Code(s): E11.65 - TYPE 2 DIABETES MELLITUS WITH HYPERGLYCEMIA Status: Chronic Plan: Continue Lantus 10u SC daily, ISS, ADA - Plan continue antibiotics, PT/OT, rn social services, respiratory therapy, out of bed/ambulate, DVT proph w/SCDs Continue supportive mgmt Continue Zithromax/Rocephin Continue Dexamethasone 6mg BID O2 via High-flow NC @ 40L/min Isolation protocol Continue Lantus/ISS AM lab: CRP, Ferritin, D-dimer
[2020-08-27] MEDS: HumaLOG 300 UNITS/3 ML VIAL SC PRN (17:21)
--- NOTE | 2020-08-27 19:19 | PRG ---
DATE OF SERVICE: 08/27/2020 SUBJECTIVE: The patient is seen and examined, still dependent on high-flow nasal oxygen, noted with following vital signs. OBJECTIVE: VITAL SIGNS: Blood pressure 122/82, heart rate of 91, respiratory rate of 27, O2 saturations of 98%. HEENT: Unremarkable. CARDIOVASCULAR SYSTEM: First and second heart sounds were heard. RESPIRATORY SYSTEM: Clear to auscultation. DIGESTIVE SYSTEM: Revealed a benign abdomen with positive bowel sounds. EXTREMITIES: No peripheral edema. SKIN: No new gross rash. LYMPHATICS: No peripheral lymphadenopathy. LABORATORY INVESTIGATION: Showed unremarkable chemistry. IMPRESSION: 1. Acute kidney injury, which is improved. 2. COVID pneumonitis. 3. Hypernatremia, resolved status post free water repletion. PLAN: Continue current renal supportive measures. Job ID: [id number]
[2020-08-27] MEDS: Insulin Glargine 10 UNITS in Pre-Filled Syringe 1 EACH SC SCH (21:07)
[2020-08-27] MEDS: cefTRIAXone\\ROCEPHIN 2 GM in Sodium Chloride 0.9% 100 ML IVPB SCH (21:12)
[2020-08-28] MEDS: Azithromycin 500 MG in Sodium Chloride 0.9% 250 ML 250 ML IVPB SCH ×2 (00:19→23:40)
[2020-08-28 04:21] LABS: Anion Gap 14 mmol/L (10-20); BUN (Urea Nitrogen) 18 mg/dL (8.9-20.6); Calc. Creatinine Clearance 181 mL/min (70-130); Calcium 7.9 mg/dL (7.8-10.44); Carbon Dioxide 24 mmol/L (22-29); Chloride 106 mmol/L (98-107); Estimated GFR-MDRD 82; Glucose 222 mg/dL (70-105); Potassium 4.8 mmol/L (3.5-5.1); Sodium 139 mmol/L (136-145)
[2020-08-28] MEDS: HumaLOG 300 UNITS/3 ML VIAL SC PRN ×3 (05:49→17:00)
[2020-08-28] MEDS: Zinc Sulfate 220 MG CAP PO SCH (08:49)
[2020-08-28] MEDS: Cholecalciferol (Vitamin D3) 400 UNITS TAB PO SCH (08:49)
[2020-08-28] MEDS: Ascorbic Acid 500 mg Chewable Tablet PO SCH (08:49)
[2020-08-28] MEDS: Famotidine/PF 20 mg/2ml Vial SLOW IVP SCH ×2 (08:49→21:17)
[2020-08-28] MEDS: Dexamethasone 6 MG in Sodium Chloride 0.9% 50 ML IVPB SCH ×2 (08:51→21:16)
[2020-08-28] MEDS: Enoxaparin Sodium 80 MG/0.8 ML SYRINGE SC SCH ×2 (08:51→21:17)
--- NOTE | 2020-08-28 12:32 | PRG ---
DATE OF SERVICE: 08/28/2020 SUBJECTIVE: Mr. Pittman appears better today compared to previous. OBJECTIVE: VITAL SIGNS: His temperature is 98.4, pulse 90, blood pressure 142/92, O2 sats 94% on 40% face mask. HEENT: Unremarkable. NECK: No JVD. LUNGS: Crackles bilaterally. CARDIAC: S1 and S2. Regular. ABDOMEN: Soft. EXTREMITIES: No edema. LABORATORY DATA: Sodium 139, potassium 4.8, chloride 106, CO2 of 24, BUN 18, creatinine 0.9, and glucose 222. ASSESSMENT: 1. COVID-19 pneumonia with improving hypoxemia. 2. Diabetes mellitus. 3. Status post acute respiratory failure. PLAN: Continue enoxaparin, dexamethasone, vitamin C, vitamin D, and zinc. The patient can probably transfer out to the COVID floor. Job ID: [id number]
--- NOTE | 2020-08-28 16:14 | PDOC.HOSPP ---
- Subjective Encounter Date: 08/28/20 Encounter Time: 16:00 Subjective: f/u for COVID PNA on high flow NC @ 40L/min. States feeling ok overall but SOB with exertion. No fever noted. - Objective Vital Signs & Weight: Vital Signs (12 hours) Pulse Ox 08/28/20 08:00 95 Weight Weight 300 lb 1 oz Most Recent Monitor Data Heart Rate from ECG 93 NIBP 136/88 NIBP BP-Mean 104 Respiration from ECG 16 SpO2 99 I&O: 08/27/20 08/28/20 08/29/20 06:59 06:59 06:59 Intake Total 2600 2041.4 100 Output Total 1500 2500 650 Balance 1100 -458.6 -550 Result Diagrams: 08/25/20 02:15 08/28/20 03:28 Additional Labs: Accuchecks 08/28/20 08/28/20 08/27/20 15:44 05:52 20:15 POC Glucose 224 H 203 H 218 H Laboratory Tests 08/24/20 08/24/20 08/24/20 18:14 18:14 18:14 Hgb 13.2 L Plt Count 463 H Band Neuts % (Manual) 35 H D-Dimer 0.90 H Hemoglobin A1c Ferritin B-Hydroxybutyrate 0.81 H 08/25/20 08/25/20 08/25/20 02:15 02:15 02:15 Hgb Plt Count Band Neuts % (Manual) 20 H D-Dimer Hemoglobin A1c 11.2 H Ferritin 2235.30 H B-Hydroxybutyrate 08/26/20 08/26/20 03:56 03:56 Hgb Plt Count Band Neuts % (Manual) D-Dimer 1.84 H Hemoglobin A1c Ferritin 1929.74 H B-Hydroxybutyrate Laboratory Tests 08/28/20 08/28/20 08/28/20 03:28 03:29 03:29 D-Dimer 0.69 H Ferritin 1999.81 H C-Reactive Protein 8.34 H EKG Reviewed by me: Yes (Tele - SR) Hospitalist ROS - Medication Medications: Active Medications Generic Name Dose Route Start Last Admin Trade Name Freq PRN Reason Stop Dose Admin Ascorbic Acid 1,000 mg 08/26/20 09:00 08/28/20 08:49 Ascorbic Acid 500 Mg Chewable Tablet PO 1,000 mg DAILY LAVERN Administration Cholecalciferol 1,200 units 08/26/20 09:00 08/28/20 08:49 Cholecalciferol (Vitamin D3) 400 Units Tab PO 1,200 units DAILY LAVERN Administration Enoxaparin Sodium 140 mg 08/25/20 09:00 08/28/20 08:51 Enoxaparin Sodium 80 Mg/0.8 Ml Syringe SC 140 mg 0900,2100 LAVERN Administration Famotidine 20 mg 08/25/20 09:00 08/28/20 08:49 Famotidine/Pf 20 Mg/2ml Vial SLOW IVP 20 mg Q12HR LAVERN Administration Ceftriaxone Sodium 2 gm/ 100 mls @ 200 mls/hr 08/24/20 21:15 08/27/20 21:12 Sodium Chloride IVPB 100 mls Q24HR LAVERN Administration Azithromycin 500 mg/ Sodium 250 mls @ 250 mls/hr 08/24/20 23:59 08/28/20 00:19 Chloride IVPB 250 mls 2359 LAVERN Administration Insulin Glargine 10 units/ 0.1 mls @ 0 mls/hr 08/26/20 21:00 08/27/20 21:07 Miscellaneous Medication SC 0.1 mls HS LAVERN Administration Dexamethasone 6 mg/ Sodium 50.6 mls @ 100 mls/hr 08/27/20 21:00 08/28/20 08:51 Chloride IVPB 50.6 mls BID LAVERN Administration Insulin Human Lispro 0 units 08/26/20 08:09 08/28/20 11:46 Humalog 300 Units/3 Ml Vial SC 2 unit .MODERATE SLIDING SC PRN Administration Moderate Correctional Scale Zinc Sulfate 220 mg 08/26/20 09:00 08/28/20 08:49 Zinc Sulfate 220 Mg Cap PO 220 mg DAILY LAVERN Administration - Exam General Appearance: NAD, awake alert Eye: PERRL, anicteric sclera ENT: normocephalic atraumatic, no oropharyngeal lesions Neck: supple, symmetric, no JVD, no thyromegaly, no lymphadenopathy Heart: RRR, no gallops, no rubs, normal peripheral pulses Heart - other findings: S1, S2 Respiratory: CTAB, no wheezes, no rales, no ronchi, normal chest expansion Gastrointestinal: soft, non-tender, non-distended, normal bowel sounds, no palpable masses Gastrointestinal - other findings: obese Extremities: no cyanosis, no clubbing, no edema Skin: normal turgor, no lesions Neurological: cranial nerve grossly intact, no focal deficits Musculoskeletal: normal tone, normal strength, no muscle wasting Psychiatric: normal affect, A&O x 3 Hosp A/P (1) Pneumonia due to COVID-19 virus Code(s): U07.1 - COVID-19; J12.89 - OTHER VIRAL PNEUMONIA Status: Acute Plan: Continue Rocephin/Zithromax/Dexamethasone/Vit C/Zinc/Lovenox, continue high-flow NC O2 @ 40L/min, wean as clinically indicated (2) Acute respiratory failure due to COVID-19 Code(s): U07.1 - COVID-19; J96.00 - ACUTE RESPIRATORY FAILURE, UNSP W HYPOXIA OR HYPERCAPNIA Status: Acute Plan: See #1 (3) Acute renal failure Status: Acute Qualifiers: Acute renal failure type: unspecified Qualified Code(s): N17.9 - Acute kidney failure, unspecified Plan: Resolved (4) Diabetes mellitus type II, uncontrolled Code(s): E11.65 - TYPE 2 DIABETES MELLITUS WITH HYPERGLYCEMIA Status: Chronic Plan: Labile due to Decadron, continue ISS/Lantus, serial accuchecks - Plan continue antibiotics, perinatal social worker, respiratory therapy, out of bed/ambulate, DVT proph w/SCDs Continue supportive mgmt Continue Zithromax/Rocephin Continue Dexamethasone 6mg BID O2 via High-flow NC @ 40L/min Isolation protocol Continue Lantus/ISS AM lab: CRP, Ferritin, D-dimer
--- NOTE | 2020-08-28 17:19 | PRG ---
DATE OF SERVICE: 08/28/2020 SUBJECTIVE: The patient noted with the following vital signs. OBJECTIVE: VITAL SIGNS: Blood pressure 136/88, heart rate , respiratory rate of 16 to 20, O2 sat of 99%. HEENT: Unremarkable. CARDIOVASCULAR SYSTEM: First and second heart sounds were heard. RESPIRATORY SYSTEM: Clear to auscultation. DIGESTIVE SYSTEM: Revealed a benign abdomen. Positive bowel sounds. EXTREMITIES: No peripheral edema. SKIN: No new gross rash. LYMPHATICS: No peripheral lymphadenopathy. IMPRESSION: 1. COVID pneumonitis. 2. Acute kidney injury, which is much improved. 3. Hypernatremia, resolved. PLAN: 1. Continue current renal supportive measures. 2. Further management to be dependent on the clinical course. Job ID: [id number]
[2020-08-28] MEDS: cefTRIAXone\\ROCEPHIN 2 GM in Sodium Chloride 0.9% 100 ML IVPB SCH (21:16)
[2020-08-28] MEDS: Insulin Glargine 10 UNITS in Pre-Filled Syringe 1 EACH SC SCH (21:17)
[2020-08-29 04:10] LABS: Anion Gap 14 mmol/L (10-20); BUN (Urea Nitrogen) 17 mg/dL (8.9-20.6); CRP (Inflammatory) 4.55 mg/dL (= or < 0.5); Calc. Creatinine Clearance 178 mL/min (70-130); Calcium 8.2 mg/dL (7.8-10.44); Carbon Dioxide 25 mmol/L (22-29); Chloride 106 mmol/L (98-107); Estimated GFR-MDRD 80; Glucose 233 mg/dL (70-105); Potassium 4.9 mmol/L (3.5-5.1); Sodium 140 mmol/L (136-145)
[2020-08-29] MEDS: HumaLOG 300 UNITS/3 ML VIAL SC PRN ×2 (05:04→11:31)
[2020-08-29] MEDS: Ascorbic Acid 500 mg Chewable Tablet PO SCH (08:36)
[2020-08-29] MEDS: Cholecalciferol (Vitamin D3) 400 UNITS TAB PO SCH (08:37)
[2020-08-29] MEDS: Enoxaparin Sodium 80 MG/0.8 ML SYRINGE SC SCH ×2 (08:37→21:44)
[2020-08-29] MEDS: Dexamethasone 6 MG in Sodium Chloride 0.9% 50 ML IVPB SCH ×2 (08:37→21:43)
[2020-08-29] MEDS: Zinc Sulfate 220 MG CAP PO SCH (08:38)
[2020-08-29] MEDS: Famotidine/PF 20 mg/2ml Vial SLOW IVP SCH ×2 (08:38→21:43)
--- NOTE | 2020-08-29 09:58 | PDOC.HOSPP ---
- Subjective Encounter Date: 08/29/20 Encounter Time: 11:00 Subjective: Patient remains on high flow O2. No complaints. - Objective Vital Signs & Weight: Vital Signs (12 hours) Temp Pulse Ox 08/29/20 08:00 96 08/29/20 04:00 98.3 F 08/29/20 03:00 95 08/28/20 23:47 98.4 F Weight Weight 300 lb 1 oz Most Recent Monitor Data Heart Rate from ECG 88 NIBP 120/98 NIBP BP-Mean 105 Respiration from ECG 14 SpO2 94 I&O: 08/28/20 08/29/20 08/30/20 06:59 06:59 06:59 Intake Total 2041.4 1464 Output Total 2500 2049 Balance -458.6 -586 Result Diagrams: 08/25/20 02:15 08/29/20 03:31 Additional Labs: Accuchecks 08/29/20 08/28/20 08/28/20 05:07 20:58 15:44 POC Glucose 217 H 238 H 224 H Hospitalist ROS - Review of Systems Constitutional: denies: fever, chills Respiratory: reports: shortness of breath, SOB with excertion. denies: cough Cardiovascular: denies: chest pain, palpitations Gastrointestinal: denies: nausea, vomiting, abdominal pain - Medication Medications: Active Medications Generic Name Dose Route Start Last Admin Trade Name Freq PRN Reason Stop Dose Admin Ascorbic Acid 1,000 mg 08/26/20 09:00 08/29/20 08:36 Ascorbic Acid 500 Mg Chewable Tablet PO 1,000 mg DAILY LAVERN Administration Cholecalciferol 1,200 units 08/26/20 09:00 08/29/20 08:37 Cholecalciferol (Vitamin D3) 400 Units Tab PO 1,200 units DAILY LAVERN Administration Enoxaparin Sodium 140 mg 08/25/20 09:00 08/29/20 08:37 Enoxaparin Sodium 80 Mg/0.8 Ml Syringe SC 140 mg 0900,2100 LAVERN Administration Famotidine 20 mg 08/25/20 09:00 08/29/20 08:38 Famotidine/Pf 20 Mg/2ml Vial SLOW IVP 20 mg Q12HR LAVERN Administration Ceftriaxone Sodium 2 gm/ 100 mls @ 200 mls/hr 08/24/20 21:15 11/27/20 21:16 Sodium Chloride IVPB 100 mls Q24HR LAVERN Administration Azithromycin 500 mg/ Sodium 250 mls @ 250 mls/hr 08/24/20 23:59 08/28/20 23:40 Chloride IVPB 250 mls 2359 LAVERN Administration Insulin Glargine 10 units/ 0.1 mls @ 0 mls/hr 08/26/20 21:00 08/28/20 21:17 Miscellaneous Medication SC 0.1 mls HS LAVERN Administration Dexamethasone 6 mg/ Sodium 50.6 mls @ 100 mls/hr 08/27/20 21:00 08/29/20 08:37 Chloride IVPB 50.6 mls BID LAVERN Administration Insulin Human Lispro 0 units 08/26/20 08:09 08/29/20 05:04 Humalog 300 Units/3 Ml Vial SC 4 unit .MODERATE SLIDING SC PRN Administration Moderate Correctional Scale Zinc Sulfate 220 mg 08/26/20 09:00 08/29/20 08:38 Zinc Sulfate 220 Mg Cap PO 220 mg DAILY LAVERN Administration - Exam General Appearance: NAD, awake alert ENT: moist mucosa Heart: RRR, no murmur, no gallops, no rubs Respiratory: CTAB, no wheezes, no rales, no ronchi Gastrointestinal: soft, non-tender, non-distended, normal bowel sounds Psychiatric: normal affect, normal behavior Hosp A/P - Plan (1) Pneumonia due to COVID-19 virus Code(s): U07.1 - COVID-19; J12.89 - OTHER VIRAL PNEUMONIA Status: Acute Plan: Continue Rocephin/Zithromax/Dexamethasone/Vit C/Zinc/Lovenox, continue high-flow NC O2 @ 40L/min, wean as clinically indicated (2) Acute respiratory failure due to COVID-19 Code(s): U07.1 - COVID-19; J96.00 - ACUTE RESPIRATORY FAILURE, UNSP W HYPOXIA OR HYPERCAPNIA Status: Acute Plan: See #1 (3) Acute renal failure Status: Acute Qualifiers: Acute renal failure type: unspecified Qualified Code(s): N17.9 - Acute kidney failure, unspecified Plan: Resolved (4) Diabetes mellitus type II, uncontrolled Code(s): E11.65 - TYPE 2 DIABETES MELLITUS WITH HYPERGLYCEMIA Status: Chronic Plan: Labile due to Decadron, continue ISS/Lantus, serial accuchecks - Plan continue antibiotics, aids social worker, respiratory therapy, out of bed/ambulate, DVT proph w/SCDs Continue supportive mgmt Continue Zithromax/Rocephin Continue Dexamethasone 6mg BID O2 via High-flow NC @ 40L/min, 50% FiO2 Isolation protocol Continue Lantus/ISS AM lab: CRP, Ferritin, D-dimer, CBC
--- NOTE | 2020-08-29 17:51 | PRG ---
DATE OF SERVICE: 08/29/2020 SUBJECTIVE: The patient is seen and examined and noted with the following vital signs. PHYSICAL EXAMINATION: VITAL SIGNS: Blood pressure 164/90, pulse of 67, respiratory rate of 18, O2 saturation 100%. HEENT: Examination unremarkable. CARDIOVASCULAR: First and second heart sounds were heard. RESPIRATORY: Clear to auscultation. DIGESTIVE: Revealed a benign abdomen. Positive bowel sounds. EXTREMITIES: No peripheral edema. SKIN: No new gross rash. LYMPHATICS: No peripheral lymphadenopathy. IMPRESSION: 1. Cardiopulmonary failure in the context of COVID pneumonitis. 2. Hypernatremia, which seems to be improving now. 3. Acute kidney injury, grossly resolved. PLAN: 1. Continue current renal supportive measures. 2. Further management will be dependent on the clinical course. Job ID: [id number]
[2020-08-29] MEDS: cefTRIAXone\\ROCEPHIN 2 GM in Sodium Chloride 0.9% 100 ML IVPB SCH (21:43)
[2020-08-29] MEDS: Insulin Glargine 10 UNITS in Pre-Filled Syringe 1 EACH SC SCH (21:44)
[2020-08-30] MEDS: Azithromycin 500 MG in Sodium Chloride 0.9% 250 ML 250 ML IVPB SCH (00:34)
[2020-08-30 04:03] LABS: #Lymphocytes 0.6 thou/uL (1.20-3.40); #Monocytes 0.4 thou/uL (0.11-0.59); #Neutrophils 4.4 thou/uL (1.40-6.50); %Eosinophils 0.6 % (0.0-10.0); %Lymphocytes 10.2 % (21.0-51.0); %Monocytes 7.2 % (0.0-10.0); %Neutrophils 81.9 % (42.0-75.0); Hemoglobin 12.2 g/dL (14.0-18.0); Mean Corpuscular HGB CONC 32.9 g/dL (32.0-36.0); Mean Corpuscular Hemoglobin 27.6 pg (27.0-31.0); Mean Platelet Volume 7.6 fL (7.4-10.4); Platelet Count 317 thou/uL (130-400); RBC Distribution Width 14.2 % (11.5-14.5); Red Blood Cell (RBC) Count 4.42 mill/uL (4.70-6.10); White Blood Cell (WBC) Count 5.4 thou/uL (4.8-10.8)
[2020-08-30 04:23] LABS: Anion Gap 13 mmol/L (10-20); BUN (Urea Nitrogen) 18 mg/dL (8.9-20.6); CRP (Inflammatory) 2.18 mg/dL (= or < 0.5); Calc. Creatinine Clearance 180 mL/min (70-130); Calcium 8.4 mg/dL (7.8-10.44); Carbon Dioxide 24 mmol/L (22-29); Chloride 106 mmol/L (98-107); Estimated GFR-MDRD 81; Glucose 224 mg/dL (70-105); Potassium 4.9 mmol/L (3.5-5.1); Sodium 138 mmol/L (136-145)
[2020-08-30] MEDS: HumaLOG 300 UNITS/3 ML VIAL SC PRN ×3 (05:13→17:14)
[2020-08-30] MEDS: Dexamethasone 6 MG in Sodium Chloride 0.9% 50 ML IVPB SCH ×2 (09:26→21:14)
[2020-08-30] MEDS: Enoxaparin Sodium 80 MG/0.8 ML SYRINGE SC SCH ×2 (09:27→21:16)
[2020-08-30] MEDS: Ascorbic Acid 500 mg Chewable Tablet PO SCH (09:28)
[2020-08-30] MEDS: Zinc Sulfate 220 MG CAP PO SCH (09:29)
[2020-08-30] MEDS: Famotidine/PF 20 mg/2ml Vial SLOW IVP SCH ×2 (09:29→21:15)
[2020-08-30] MEDS: Cholecalciferol (Vitamin D3) 400 UNITS TAB PO SCH (09:29)
--- NOTE | 2020-08-30 10:01 | PDOC.HOSPP ---
- Subjective Encounter Date: 08/30/20 Encounter Time: 10:00 Subjective: f/u for COVID PNA weaned off high-flow NC to 3L/min NC. No new issues noted. - Objective Vital Signs & Weight: Vital Signs (12 hours) Pulse Ox 08/30/20 04:28 100 08/30/20 04:00 100 08/30/20 00:00 99 Weight Weight 300 lb 1 oz Most Recent Monitor Data Heart Rate from ECG 70 NIBP 131/90 NIBP BP-Mean 103 Respiration from ECG 17 SpO2 100 I&O: 08/29/20 08/30/20 08/31/20 06:59 06:59 06:59 Intake Total 1464 1535 Output Total 2050 2220 Balance -871 -015 Result Diagrams: 08/30/20 03:49 08/30/20 03:49 Additional Labs: Accuchecks 08/30/20 08/29/20 05:16 20:44 POC Glucose 200 H 202 H Laboratory Tests 08/24/20 08/24/20 08/24/20 18:14 18:14 18:14 Hgb 13.2 L Plt Count 463 H Band Neuts % (Manual) 35 H D-Dimer 0.90 H Hemoglobin A1c Ferritin C-Reactive Protein B-Hydroxybutyrate 0.81 H 08/25/20 08/25/20 08/25/20 02:15 02:15 02:15 Hgb Plt Count Band Neuts % (Manual) 20 H D-Dimer Hemoglobin A1c 11.2 H Ferritin 2235.30 H C-Reactive Protein B-Hydroxybutyrate 08/26/20 08/26/20 08/28/20 03:56 03:56 03:28 Hgb Plt Count Band Neuts % (Manual) D-Dimer 1.84 H Hemoglobin A1c Ferritin 1929.74 H C-Reactive Protein 8.34 H B-Hydroxybutyrate 08/28/20 08/28/20 03:29 03:29 Hgb Plt Count Band Neuts % (Manual) D-Dimer 0.69 H Hemoglobin A1c Ferritin 1999.81 H C-Reactive Protein B-Hydroxybutyrate EKG Reviewed by me: Yes (Tele - SR) Hospitalist ROS - Medication Medications: Active Medications Generic Name Dose Route Start Last Admin Trade Name Freq PRN Reason Stop Dose Admin Ascorbic Acid 1,000 mg 08/26/20 09:00 08/30/20 09:28 Ascorbic Acid 500 Mg Chewable Tablet PO 1,000 mg DAILY LAVERN Administration Cholecalciferol 1,200 units 08/26/20 09:00 08/30/20 09:29 Cholecalciferol (Vitamin D3) 400 Units Tab PO 1,200 units DAILY LAVERN Administration Enoxaparin Sodium 140 mg 08/25/20 09:00 08/30/20 09:27 Enoxaparin Sodium 80 Mg/0.8 Ml Syringe SC 140 mg 0900,2100 LAVERN Administration Famotidine 20 mg 08/25/20 09:00 08/30/20 09:29 Famotidine/Pf 20 Mg/2ml Vial SLOW IVP 20 mg Q12HR LAVERN Administration Ceftriaxone Sodium 2 gm/ 100 mls @ 200 mls/hr 08/24/20 21:15 08/29/20 21:43 Sodium Chloride IVPB 100 mls Q24HR LAVERN Administration Azithromycin 500 mg/ Sodium 250 mls @ 250 mls/hr 08/24/20 23:59 08/30/20 00:34 Chloride IVPB 250 mls 2359 LAVERN Administration Insulin Glargine 10 units/ 0.1 mls @ 0 mls/hr 08/26/20 21:00 08/29/20 21:44 Miscellaneous Medication SC 0.1 mls HS LAVERN Administration Dexamethasone 6 mg/ Sodium 50.6 mls @ 100 mls/hr 08/27/20 21:00 08/30/20 09:26 Chloride IVPB 50.6 mls BID LAVERN Administration Insulin Human Lispro 0 units 08/26/20 08:09 08/30/20 05:13 Humalog 300 Units/3 Ml Vial SC 2 unit .MODERATE SLIDING SC PRN Administration Moderate Correctional Scale Zinc Sulfate 220 mg 08/26/20 09:00 08/30/20 09:29 Zinc Sulfate 220 Mg Cap PO 220 mg DAILY LAVERN Administration - Exam General Appearance: NAD, awake alert Eye: PERRL, anicteric sclera ENT: normocephalic atraumatic, no oropharyngeal lesions Neck: supple, symmetric, no JVD, no thyromegaly, no lymphadenopathy Heart: RRR, no gallops, no rubs, normal peripheral pulses Heart - other findings: S1, S2 Respiratory: no wheezes, no ronchi, tachypneic Respiratory - other findings: diminished in bases Gastrointestinal: soft, non-tender, non-distended, normal bowel sounds, no palpable masses Gastrointestinal - other findings: obese Extremities: no cyanosis, no clubbing, no edema Skin: normal turgor, no lesions Neurological: cranial nerve grossly intact, no new deficit Musculoskeletal: normal tone, generalized weakness Psychiatric: normal affect, A&O x 3 Hosp A/P (1) Pneumonia due to COVID-19 virus Code(s): U07.1 - COVID-19; J12.89 - OTHER VIRAL PNEUMONIA Status: Acute Plan: Continue Zithromax/Rocephin/O2 via NC @ 3L/min NC (2) Acute respiratory failure due to COVID-19 Code(s): U07.1 - COVID-19; J96.00 - ACUTE RESPIRATORY FAILURE, UNSP W HYPOXIA OR HYPERCAPNIA Status: Acute (3) Acute renal failure Status: Acute Qualifiers: Acute renal failure type: unspecified Qualified Code(s): N17.9 - Acute kid aisha failure, unspecified (4) Diabetes mellitus type II, uncontrolled Code(s): E11.65 - TYPE 2 DIABETES MELLITUS WITH HYPERGLYCEMIA Status: Chronic - Plan continue antibiotics, social worker aide, out of bed/ambulate, DVT proph w/SCDs Continue supportive mgmt Continue Zithromax/Rocephin Continue Dexamethasone 6mg BID Set up for home O2 at discharge Isolation protocol Continue Lantus/ISS Likely home in 24h
--- NOTE | 2020-08-30 14:26 | PRG ---
DATE OF SERVICE: 08/30/2020 OBJECTIVE: VITAL SIGNS: Heart rates in the 80s, blood pressure 131/88, respiratory rate is 20, oximetry is 95% to 96%. He is on 3 L cannula now. LUNGS: Distant, clear. HEART: Regular rhythm. ABDOMEN: Soft. IMPRESSION AND PLAN: COVID pneumonia, clinically improving. Now that he is down to a nasal cannula. He could probably move out of the intermediate care unit. Job ID: [id number]
[2020-08-30] MEDS: cefTRIAXone\\ROCEPHIN 2 GM in Sodium Chloride 0.9% 100 ML IVPB SCH (21:15)
[2020-08-30] MEDS: Insulin Glargine 10 UNITS in Pre-Filled Syringe 1 EACH SC SCH (21:17)
--- NOTE | 2020-08-30 22:24 | PRG ---
DATE OF SERVICE: 08/30/2020 OBJECTIVE: VITAL SIGNS: The patient noted with following vital signs; afebrile with temperature 98.4, oxygen 98% on 3 L of nasal cannula, blood pressure 111/79. HEENT EXAMINATION: Unremarkable. CARDIOVASCULAR SYSTEM: First and second heart sounds were heard. RESPIRATORY SYSTEM: Clear to auscultation. DIGESTIVE SYSTEM: Revealed a benign abdomen. EXTREMITIES: No peripheral edema. SKIN EXAMINATION: No new gross rash. LYMPHATICS: No peripheral lymphadenopathy. PLAN: Continue current management. Job ID: [id number]
[2020-08-31] MEDS: Azithromycin 500 MG in Sodium Chloride 0.9% 250 ML 250 ML IVPB SCH (00:02)
[2020-08-31 08:11] VITALS: TEMP 97.9
[2020-08-31] MEDS: Enoxaparin Sodium 80 MG/0.8 ML SYRINGE SC SCH ×2 (09:59→10:06)
[2020-08-31] MEDS: Cholecalciferol (Vitamin D3) 400 UNITS TAB PO SCH (10:02)
[2020-08-31] MEDS: Famotidine/PF 20 mg/2ml Vial SLOW IVP SCH (10:03)
[2020-08-31] MEDS: Dexamethasone 6 MG in Sodium Chloride 0.9% 50 ML IVPB SCH (10:03)
[2020-08-31] MEDS: Zinc Sulfate 220 MG CAP PO SCH (10:04)
[2020-08-31] MEDS: Ascorbic Acid 500 mg Chewable Tablet PO SCH (10:04)
[2020-08-31] MEDS: HumaLOG 300 UNITS/3 ML VIAL SC PRN (10:31)
--- NOTE | 2020-08-31 11:27 | PRG ---
DATE OF SERVICE: 08/31/2020 SUBJECTIVE: The patient looks like he is doing very well. He has been weaned to 2 L nasal cannula. His sensorium is completely normal. OBJECTIVE: VITAL SIGNS: Temperature 97.9, pulse 79, O2 saturation 95% on 2 L, and blood pressure 116/75. HEENT: Unremarkable. NECK: No adenopathy or JVD. LUNGS: Clear. CARDIAC: S1 and S2. Regular. ABDOMEN: Soft. EXTREMITIES: No edema. ASSESSMENT: COVID-19 pneumonia with improvement. PLAN: The patient was originally diagnosed on 08/12. I would say that he is safe to come out of isolation since he is more than 10 days into his hospital course. He can be transferred to the medical floor and I think he can probably go home soon. Job ID: [id number]
--- NOTE | 2020-08-31 11:27 | DIS ---
DATE OF ADMISSION: 08/24/2020 DATE OF DISCHARGE: 08/31/2020 DISCHARGE DIAGNOSES: 1. Pneumonia due to COVID-19 virus. 2. Acute hypoxic respiratory failure due to #1. 3. Acute kidney injury, resolving. 4. Diabetes mellitus type 2, labile. CONSULTATIONS: 1. Dr. Luna and Dr. Taveras with Pulmonology Critical Care Service. 2. Dr. Foster with Nephrology Service. 3. Dr. Prieto Ba with Infectious Disease Service. PERTINENT LABORATORY AND X-RAY FINDINGS: Hemoglobin A1c 11.2. Lactic acid level 2.0. CRP ranged between 2.18 to 15.63. BNP 14.1. Ferritin ranged between 1930 to 2235. D-dimer ranged between 0.52 to 1.84. Beta-hydroxybutyrate level 0.81. Portable chest x-ray dated 08/24/2020 showed extensive bilateral interstitial and alveolar opacities. HOSPITAL COURSE: The patient was initially admitted after presenting with increased shortness of breath associated with cough and fever with initial diagnosis of COVID-19 viral infection on 08/12/2020. The patient progressively worsened with chills, fever, cough, and dyspnea, presenting with hypoxia, requiring high-flow oxygen supplementation in the emergency room. The patient was initially placed on IV Rocephin and azithromycin in addition to Decadron intravenously. The patient was placed on high-flow oxygen supplementation, requiring this for the majority of the hospital stay, de-escalating to oxygen via nasal cannula at 3 L/minute. The patient was evaluated by the Infectious Disease Service and Pulmonology Service, monitoring clinical improvement during the hospital stay. The patient also received subcutaneous Lovenox as well as vitamin C and zinc supplementation. The patient did clinically improve over approximately 7 days and ready for discharge on 08/31/2020. I have examined the patient at the time of discharge and discussed followup instructions. The patient verbalized understanding and agreement, ready for discharge on 08/31/2020. DISCHARGE MEDICATIONS: 1. Dexamethasone 6 mg p.o. daily x7 days. 2. Vitamin C 1000 mg p.o. daily. FOLLOWUP: The patient will follow up with primary care provider of choice as he will transition to reside in [place], [place]. CONDITION ON DISCHARGE: Stable. ACTIVITY: Ad-sowmya. DIET: ADA and heart healthy. SPECIAL INSTRUCTIONS: Recommend outpatient followup regarding diabetes mellitus as well as continuation of oxygen supplementation at 3 L/minute. CODE STATUS: Full. DISPOSITION: To home, 08/31/2020. TIME SPENT: Total time preparing and coordinating discharge, 36 minutes. Job ID: [id number]
[2020-09-01] MEDS ORDERED: Dexamethasone 4 MG TAB PO SCH (09:00)
--- NOTE | 2020-09-05 15:18 | EKG ---
Test Reason : Blood Pressure : / mmHG Vent. Rate : 105 BPM Atrial Rate : 105 BPM P-R Int : 146 ms QRS Dur : 080 ms QT Int : 402 ms P-R-T Axes : 030 -04 -03 degrees QTc Int : 531 ms Sinus tachycardia Otherwise normal ECG Confirmed by PANDA HUBBARD ([id number]), continuity editor RICHARD WALLS ([id number] on 09/05/2020 3:17:44 PM Referred By: Confirmed By:PANDA Stewart
== END 2020-08-31 16:05 | disposition home or self-care (01) | DRG 871 ==
LOC: ERS 17:32 → IMCU/EMU 19:45
PROVIDERS: ADMIT Internal Medicine; ATTEND Internal Medicine
PROC: 8E0ZXY6 Isolation (ICD-10-PCS; principal; 2020-08-24)
DX: A41.9 Sepsis, unspecified organism (principal); U07.1 COVID-19; J12.89 Other viral pneumonia; J96.01 Acute respiratory failure with hypoxia; N17.9 Acute kidney failure, unspecified; E87.0 Hyperosmolality and hypernatremia; Z68.41 Body mass index [BMI] 40.0-44.9, adult; R65.20 Severe sepsis without septic shock; R79.89 Other specified abnormal findings of blood chemistry; E11.22 Type 2 diabetes mellitus with diabetic chronic kidney disease; N18.9 Chronic kidney disease, unspecified; E66.01 Morbid (severe) obesity due to excess calories; E11.65 Type 2 diabetes mellitus with hyperglycemia
CPT/HCPCS: 36415; 36416; 71045; 76770; 80048; 82010; 82728; 82805; 83036; 83605; 83690; 83880; 84145; 85007; 85025; 85027; 85379; 86140; 93005; 96365; 96366; J0456; J0696; J1100; J1650; J1815; J3480; J3490; J7050; S0028